=== PATIENT | male | born 1985 | race Two or more races ===

== ENCOUNTER → 2017-03-09 | Outpatient (CLI) | payer OTHER ==
[2017-03-09 09:21] LABS: BASOPHIL % 0.5 % (0-2); PLATELET COUNT 285 x10^3mcL (130-400); RED CELL DISTRIBUTION WIDTH 13.3 % (11.5-14.5)
[2017-03-09 10:03] LABS: ALKALINE PHOSPHATASE 96 U/L (46-116); ALT/SGPT 52 U/L (16-63); AST/SGOT 27 U/L (15-37); BILIRUBIN TOTAL 0.4 mg/dL (0.20-1.00); CALCIUM 9.2 mg/dL (8.5-10.1); CARBON DIOXIDE 31.8 mmol/L (21-32); CHLORIDE SERUM 102 mmol/L (98-107); CREATININE SERUM 0.9 mg/dL (0.7-1.3); GFR1 > 60 mL/min; GLUCOSE SERUM 90 mg/dL (74-106); HDL CHOLESTEROL 60 mg/dL (40-60); POTASSIUM SERUM 3.9 mmol/L (3.5-5.1); SODIUM SERUM 139 mmol/L (136-145); TRIGLYCERIDES 93 mg/dL (<150)
[2017-03-09 10:07] LABS: CHOLESTEROL 223 mg/dL (<200); CHOLESTEROL/HDL RATIO 3.7; TOTAL PROTEIN, SERUM 8.3 g/dL (6.4-8.2)
[2017-03-09 10:40] LABS: IRON 96 ug/dL (65-170); TOTAL IRON BINDING CAPACITY 388 ug/dL (250-450)
[2017-03-10 10:48] LABS: TESTOSTERONE, SERUM 333 ng/dL (264-916)
== END | disposition home or self-care (01) ==
LOC: LB 08:50
DX: Z04.8 Encounter for examination and observation for other specified reasons (principal)
CPT/HCPCS: 84403

== ENCOUNTER → 2017-04-06 | Outpatient (CLI) | payer OTHER | END | disposition home or self-care (01) | LOC: LB 11:45 | DX: E23.0 Hypopituitarism (principal) ==

== ENCOUNTER → 2017-12-06 | Outpatient (CLI) | payer OTHER | END | disposition home or self-care (01) | LOC: LB 17:26 | DX: E23.0 Hypopituitarism (principal) | CPT/HCPCS: 84153 ==

== ENCOUNTER → 2017-12-19 | Outpatient (CLI) | payer OTHER ==
[2017-12-19 09:16] LABS: BASOPHIL % 0.5 % (0-2); PLATELET COUNT 251 x10^3mcL (130-400); RED CELL DISTRIBUTION WIDTH 13.6 % (11.5-14.5)
[2017-12-19 09:48] LABS: ALBUMIN 3.9 g/dL (3.4-5.0); ALKALINE PHOSPHATASE 78 U/L (46-116); ALT/SGPT 41 U/L (16-63); AST/SGOT 27 U/L (15-37); BILIRUBIN TOTAL 0.45 mg/dL (0.20-1.00); CARBON DIOXIDE 29.3 mmol/L (21-32); CHLORIDE SERUM 105 mmol/L (98-107); CHOLESTEROL 190 mg/dL (<200); CHOLESTEROL/HDL RATIO 3.3; CREATININE SERUM 0.9 mg/dL (0.7-1.3); GFR1 > 60 mL/min; GLUCOSE SERUM 86 mg/dL (74-106); HDL CHOLESTEROL 57 mg/dL (40-60); SODIUM SERUM 141 mmol/L (136-145); TOTAL PROTEIN, SERUM 7.7 g/dL (6.4-8.2); TRIGLYCERIDES 129 mg/dL (<150)
== END | disposition home or self-care (01) ==
LOC: LB 08:20
DX: E29.1 Testicular hypofunction (principal)
CPT/HCPCS: 82670; 82672; 84402; 84403

== ENCOUNTER → 2018-01-18 | Outpatient (CLI) | payer OTHER ==
[2018-01-18 08:48] LABS: ALBUMIN 3.9 g/dL (3.4-5.0); BILIRUBIN DIRECT 0.1 mg/dL (0.0-0.2); BILIRUBIN TOTAL 0.41 mg/dL (0.20-1.00); TOTAL PROTEIN, SERUM 7.8 g/dL (6.4-8.2)
== END | disposition home or self-care (01) ==
LOC: LB 07:50
DX: E29.1 Testicular hypofunction (principal)
CPT/HCPCS: 82670; 82672; 84153; 84402; 84403

== ENCOUNTER → 2018-03-14 | Outpatient (CLI) | payer OTHER ==
[2018-03-14 18:48] LABS: URIC ACID 5.1 mg/dL (3.5-7.2)
[2018-03-17 13:16] LABS: VITAMIN D 25-HYDROXY 20.2 ng/mL (30.0-100.0)
== END | disposition home or self-care (01) ==
LOC: LB 17:49
DX: M25.561 Pain in right knee (principal)
CPT/HCPCS: 85613; 86431

== ENCOUNTER → 2018-03-31 | Outpatient (CLI) | payer OTHER | END | disposition home or self-care (01) | LOC: LB 13:35 | DX: M25.561 Pain in right knee (principal) | CPT/HCPCS: 85613 ==

== ENCOUNTER → 2018-04-01 | Outpatient (CLI) | payer OTHER | END | disposition home or self-care (01) | LOC: RD 16:48 | DX: M25.562 Pain in left knee (principal); M25.561 Pain in right knee ==

== ENCOUNTER → 2018-05-16 | Outpatient (CLI) | payer OTHER ==
[2018-05-16 08:38] LABS: BASOPHIL % 0.5 % (0-2); PLATELET COUNT 274 x10^3mcL (130-400); RED CELL DISTRIBUTION WIDTH 13.6 % (11.5-14.5)
[2018-05-16 09:09] LABS: ALKALINE PHOSPHATASE 79 U/L (46-116); ALT/SGPT 53 U/L (16-63); AST/SGOT 26 U/L (15-37); BILIRUBIN TOTAL 0.38 mg/dL (0.20-1.00); CALCIUM 9.4 mg/dL (8.5-10.1); CARBON DIOXIDE 31.8 mmol/L (21-32); CHLORIDE SERUM 103 mmol/L (98-107); GFR1 > 60 mL/min; GLUCOSE SERUM 96 mg/dL (74-106); POTASSIUM SERUM 4.3 mmol/L (3.5-5.1); SODIUM SERUM 142 mmol/L (136-145); TOTAL PROTEIN, SERUM 8.1 g/dL (6.4-8.2)
[2018-05-17 09:12] LABS: ESTRADIOL 12.4 pg/mL (7.6-42.6)
== END | disposition home or self-care (01) ==
LOC: LB 08:13
DX: E29.1 Testicular hypofunction (principal)
CPT/HCPCS: 82670; 82672; 84402; 84403

== ENCOUNTER → 2018-09-20 | Outpatient (CLI) | payer OTHER ==
[2018-09-20 09:30] LABS: ALBUMIN 4.1 g/dL (3.4-5.0); ALKALINE PHOSPHATASE 94 U/L (46-116); ALT/SGPT 75 U/L (16-63); AST/SGOT 34 U/L (15-37); BILIRUBIN TOTAL 0.35 mg/dL (0.20-1.00); CALCIUM 9.3 mg/dL (8.5-10.1); CARBON DIOXIDE 29.3 mmol/L (21-32); CHLORIDE SERUM 102 mmol/L (98-107); CREATININE SERUM 1.1 mg/dL (0.7-1.3); GFR1 > 60 mL/min; GLUCOSE SERUM 99 mg/dL (74-106); POTASSIUM SERUM 4.1 mmol/L (3.5-5.1); SODIUM SERUM 139 mmol/L (136-145); TOTAL PROTEIN, SERUM 8.1 g/dL (6.4-8.2)
[2018-09-20 09:41] LABS: BASOPHIL % 0.7 % (0-2); PLATELET COUNT 250 x10^3mcL (130-400); RED CELL DISTRIBUTION WIDTH 13.5 % (11.5-14.5)
[2018-09-21 09:19] LABS: ESTRADIOL <6.0 pg/mL (7.6-42.6)
== END | disposition home or self-care (01) ==
LOC: LB 08:27
DX: E23.0 Hypopituitarism (principal)
CPT/HCPCS: 82670; 82672; 84153; 84402; 84403

== ENCOUNTER → 2019-04-19 | Outpatient (CLI) | payer OTHER ==
[2019-04-19 09:54] LABS: BASOPHIL % 0.7 % (0-2); PLATELET COUNT 241 x10^3mcL (130-400); RED CELL DISTRIBUTION WIDTH 12.9 % (11.5-14.5)
[2019-04-19 09:56] LABS: ALBUMIN 3.6 g/dL (3.4-5.0); ALKALINE PHOSPHATASE 98 U/L (46-116); ALT/SGPT 77 U/L (16-63); AST/SGOT 33 U/L (15-37); BILIRUBIN TOTAL 0.3 mg/dL (0.20-1.00); CARBON DIOXIDE 29.8 mmol/L (21-32); CHLORIDE SERUM 106 mmol/L (98-107); GFR1 > 60 mL/min; GLUCOSE SERUM 89 mg/dL (74-106); HDL CHOLESTEROL 55 mg/dL (40-60); POTASSIUM SERUM 4.6 mmol/L (3.5-5.1); SODIUM SERUM 141 mmol/L (136-145); TOTAL PROTEIN, SERUM 7.5 g/dL (6.4-8.2); TRIGLYCERIDES 149 mg/dL (<150)
[2019-04-19 09:59] LABS: CHOLESTEROL 217 mg/dL (<200); CHOLESTEROL/HDL RATIO 3.9
[2019-04-19 10:09] LABS: CALCIUM 8.9 mg/dL (8.5-10.1)
== END | disposition home or self-care (01) ==
LOC: LB 09:16
DX: E23.0 Hypopituitarism (principal)
CPT/HCPCS: 84402; 84403

== ENCOUNTER → 2019-09-05 | Outpatient (CLI) | payer OTHER | END | disposition home or self-care (01) | LOC: LB 09:38 | DX: T78.40XA Allergy, unspecified, initial encounter (principal) | CPT/HCPCS: 86003 ==

== ENCOUNTER → 2019-12-09 | Outpatient (CLI) | payer OTHER ==
[2019-12-09 08:28] LABS: ALBUMIN 3.8 g/dL (3.4-5.0); ALKALINE PHOSPHATASE 100 U/L (46-116); ALT/SGPT 67 U/L (16-63); AST/SGOT 25 U/L (15-37); BASOPHIL % 0.7 % (0-2); BILIRUBIN TOTAL 0.27 mg/dL (0.20-1.00); CALCIUM 9.3 mg/dL (8.5-10.1); CARBON DIOXIDE 26.7 mmol/L (21-32); CHLORIDE SERUM 103 mmol/L (98-107); CHOLESTEROL 191 mg/dL (<200); CHOLESTEROL/HDL RATIO 3.8; CREATININE SERUM 1.1 mg/dL (0.7-1.3); GFR1 > 60 mL/min; GLUCOSE SERUM 100 mg/dL (74-106); HDL CHOLESTEROL 50 mg/dL (40-60); PLATELET COUNT 261 x10^3mcL (130-400); POTASSIUM SERUM 3.9 mmol/L (3.5-5.1); RED CELL DISTRIBUTION WIDTH 13.9 % (11.5-14.5); SODIUM SERUM 138 mmol/L (136-145); TOTAL PROTEIN, SERUM 7.5 g/dL (6.4-8.2); TRIGLYCERIDES 118 mg/dL (<150)
== END | disposition home or self-care (01) ==
LOC: LB 07:33
DX: E23.0 Hypopituitarism (principal)
CPT/HCPCS: 84305; 84402; 84403; 84439

== ENCOUNTER → 2020-08-06 | Outpatient (CLI) | payer OTHER ==
[2020-08-06 09:41] LABS: BASOPHIL % 0.7 % (0.2-1.5); PLATELET COUNT 282 x10^3mcL (152-348); RED CELL DISTRIBUTION WIDTH 14.5 % (12.1-16.2)
[2020-08-06 09:53] LABS: ALBUMIN 3.8 g/dL (3.4-5.0); ALKALINE PHOSPHATASE 109 U/L (46-116); ALT/SGPT 74 U/L (16-63); AST/SGOT 34 U/L (15-37); BILIRUBIN TOTAL 0.3 mg/dL (0.20-1.00); CALCIUM 9.2 mg/dL (8.5-10.1); CARBON DIOXIDE 30.9 mmol/L (21-32); CHLORIDE SERUM 106 mmol/L (98-107); GFR1 > 60 mL/min; GLUCOSE SERUM 92 mg/dL (74-106); HDL CHOLESTEROL 52 mg/dL (40-60); POTASSIUM SERUM 4.1 mmol/L (3.5-5.1); SODIUM SERUM 141 mmol/L (136-145); TOTAL PROTEIN, SERUM 7.8 g/dL (6.4-8.2); TRIGLYCERIDES 160 mg/dL (<150)
[2020-08-06 10:01] LABS: CHOLESTEROL 219 mg/dL (<200); CHOLESTEROL/HDL RATIO 4.2
[2020-08-07 12:16] LABS: ESTRADIOL 17.7 pg/mL (7.6-42.6)
== END | disposition home or self-care (01) ==
LOC: LB 08:48
DX: E23.0 Hypopituitarism (principal); Z79.899 Other long term (current) drug therapy
CPT/HCPCS: 82670; 84402; 84403